=== PATIENT | female | born 1980 | race Caucasian/White ===

== ENCOUNTER 2018-07-18 23:47 | Emergency (ER) | payer OTHER ==
[~2018-07-18] VITALS: Ht 167.6 cm; Wt 59.5 kg
[2018-07-18 23:51] VITALS: BP 116/74
[2018-07-18] MEDS ORDERED: ONDANSETRON ODT 4 MG ONE (23:57)
[2018-07-19] MEDS ORDERED: FAMOTIDINE 20 MG TABLET ONE (00:12)
[2018-07-19] MEDS ORDERED: DICYCLOMINE 20 MG TABLET ONE (00:12)
[2018-07-19] MEDS ORDERED: MAALOX/HYOSCYAMINE/LIDOCAINE 45 ML BTL ONE (00:12)
[2018-07-19] MEDS ORDERED: ONDANSETRON ODT 4 MG ONE (00:17)
[2018-07-19] MEDS ORDERED: FAMOTIDINE 20 MG TABLET PO ONE (00:30)
[2018-07-19] MEDS ORDERED: ONDANSETRON ODT 4 MG PO ONE ×2 (00:30)
[2018-07-19] MEDS ORDERED: DICYCLOMINE 20 MG TABLET PO ONE (00:30)
[2018-07-19] MEDS ORDERED: MAALOX/HYOSCYAMINE/LIDOCAINE 45 ML BTL PO ONE (00:30)
[2018-07-19] MEDS ORDERED: PROMETHAZINE 25 MG/ML, 1ML IM ONE (01:00)
== END 2018-07-19 02:05 | disposition home or self-care (01) ==
LOC: ED 23:59
DX: R19.7 Diarrhea, unspecified (principal); R11.2 Nausea with vomiting, unspecified; R10.84 Generalized abdominal pain
CPT/HCPCS: 96372; 99284; J2550; Q0162

== ENCOUNTER → 2018-07-28 | Outpatient (CLI) | payer OTHER | END | disposition home or self-care (01) | LOC: RAD 14:57 | PROVIDERS: ATTEND Family Medicine | DX: R60.0 Localized edema (principal); M60.812 Other myositis, left shoulder ==

== ENCOUNTER → 2019-02-08 | Outpatient (CLI) | payer OTHER | END | disposition home or self-care (01) | LOC: CFH 16:01 | PROVIDERS: ATTEND Orthopaedic Surgery Sports Medicine | DX: S46.912A Strain of unspecified muscle, fascia and tendon at shoulder and upper arm level, left arm, initial encounter (principal); X58.XXXA Exposure to other specified factors, initial encounter; Y93.89 Activity, other specified; Y92.89 Other specified places as the place of occurrence of the external cause; Y99.8 Other external cause status ==